=== PATIENT | male | born 1980 | race Caucasian/White ===

== ENCOUNTER → 2019-08-06 | Outpatient (CLI) | payer SELFPAY ==
[2019-08-06 16:29] VITALS: BMI 22.4
[2019-08-06 17:37] LABS: Absolute Lymphocyte Count 2.01 X10^3/uL (0.83-4.51); Absolute Neutrophil Count 4.1 X10^3/uL (2.0-7.7); Basophil# 0.08 X10^3/uL; Basophil% 1.2 % (0-1); Eosinophil# 0.16 X10^3/uL; Eosinophils% 2.3 % (0-5); Hematocrit 41.8 % (40-54); Hemoglobin 13.6 g/dL (13.0-16.5); Lymphocyte # 2.01 X10^3/ul (4.0); Lymphocyte % 29.5 % (19-41); Mean Corp Hgb Conc 32.5 g/dL (32-36); Mean Corpuscular Hgb 29.4 pg (27.0-32.0); Mean Corpuscular Volume 90.5 fL (80-94); Mean Platelet Vol. 11.4 fl (6.2-12.0); Monocyte# 0.47 X10^3/uL; Monocyte% 6.9 % (0-10); NRBC Flagged by Analyzer 0 % (0-5); Neutrophil # 4.08 X10^3/uL (2.7-7.7); Platelet Count 224 K/mm3 (150-450); RBC Distribution Width CV 12.8 % (11.6-14.6); RBC Distribution Width SD 42.4 fl (35.1-43.9); Red Blood Count 4.62 M/mm3 (4.6-6.2); White Blood Count 6.8 K/mm3 (4.4-11.0)
[2019-08-06 19:04] LABS: ALB/GLOB Ratio 1.2 RATIO (0.9-2.4); AST(SGOT) 19 U/L (15-37); Alanine Aminotransfer ALT/SGPT 23 U/L (16-61); Alkaline Phosphatase 64 U/L (45-117); Anion Gap 4 (5-15); BUN 17 mg/dL (7-18); Chloride 107 mmol/L (98-107); Creatinine, Serum 0.85 mg/dL (0.70-1.30); EST Glomerular Filtration Rate 106 mL/min (>60); Est Glom Filt Rate - Afr Amer 128 mL/min (>60); Globulin 3.4 g/dL (2.2-4.2); Glucose 88 mg/dL (74-106); Potassium 3.8 mmol/L (3.5-5.1); Protein, Total 7.4 g/dL (6.4-8.2); Sodium Level 139 mmol/L (136-145); T4 Total, Thyroxin 9.7 ug/dL (4.5-12.1); Thyroid Stim Hormone (TSH) 1.75 uIU/mL (0.358-3.74)
== END | disposition home or self-care (01) ==
LOC: LABSPEC 17:30
PROVIDERS: PCP Internal Medicine; Visit Provider Internal Medicine
DX: F32.9 Major depressive disorder, single episode, unspecified (principal); F41.9 Anxiety disorder, unspecified
CPT/HCPCS: 80053; 84436; 84443; 85025

== ENCOUNTER → 2020-03-25 14:26 | Outpatient (CLI) | payer MEDICAID, SELFPAY ==
[2020-03-25 14:05] VITALS: BMI 23.0
[2020-03-25 15:13] LABS: Absolute Lymphocyte Count 1.53 X10^3/uL (0.83-4.51); Absolute Neutrophil Count 5.6 X10^3/uL (2.0-7.7); Basophil# 0.07 X10^3/uL; Basophil% 0.8 % (0-1); Eosinophil# 0.87 X10^3/uL; Eosinophils% 9.9 % (0-5); Hematocrit 43.2 % (40-54); Hemoglobin 13.6 g/dL (13.0-16.5); Lymphocyte # 1.53 X10^3/ul (4.0); Lymphocyte % 17.4 % (19-41); Mean Corp Hgb Conc 31.5 g/dL (32-36); Mean Corpuscular Hgb 29.7 pg (27.0-32.0); Mean Corpuscular Volume 94.3 fL (80-94); Mean Platelet Vol. 11.2 fl (6.2-12.0); Monocyte# 0.67 X10^3/uL; Monocyte% 7.6 % (0-10); NRBC Flagged by Analyzer 0 % (0-5); Neutrophil # 5.62 X10^3/uL (2.7-7.7); Neutrophil % 64.1 % (47-70); Platelet Count 237 K/mm3 (150-450); RBC Distribution Width CV 13.4 % (11.6-14.6); RBC Distribution Width SD 46.2 fl (35.1-43.9); Red Blood Count 4.58 M/mm3 (4.6-6.2); White Blood Count 8.8 K/mm3 (4.4-11.0)
== END ==
PROVIDERS: PCP Internal Medicine; Referring Provider Internal Medicine; Visit Provider Internal Medicine
DX: F31.9 Bipolar disorder, unspecified (principal)
CPT/HCPCS: 36415; 85025

== ENCOUNTER → 2020-05-04 08:17 | Outpatient (CLI) | payer MEDICAID, SELFPAY ==
[2020-05-03 16:59] VITALS: BMI 23.7
[2020-05-04 08:20] LABS: Bacteria 0 SEEN /hpf (None Seen); Mucous, Urine 0 SEEN /hpf (<or=2+); Red Blood Cells-Urine 0 SEEN /hpf (0-5); Squamous Epithelial Cells - UA 0 SEEN /hpf (0-5); White Blood Cells 0 SEEN /hpf (0-5)
[2020-05-04 12:38] LABS: Color, Urine Yellow (Yellow); Glucose, Dipstick Normal (Normal); Ketone-Dipstick Negative (Negative); Leukocyte Esterase-Dipstick Negative /ul (Negative); Nitrite-Dipstick Negative (Negative); Occult Blood-Urine Negative /ul (Negative); Protein-Dipstick Negative (Negative); Urine Bilirubin Dipstick Negative (Negative); Urine Clarity Clear (Clear); Urine Urobilinogen Normal (Normal); Urine pH 6.5 (5.0 - 8.0)
[2020-05-04 13:01] LABS: Thyroid Stim Hormone (TSH) 4.46 uIU/mL (0.358-3.74)
[2020-05-05 08:51] LABS: T4 Free Direct 1.08 ng/dL (0.76-1.46)
[2020-05-07 14:08] LABS: Testosterone, Free 10.08 ng/dL (5.00-21.00)
[2020-05-08 07:22] LABS: Testosterone, Total 312 ng/dL (264-916)
[2020-05-08 07:23] LABS: Testosterone, % Free 3.23 % (1.50-4.20)
== END ==
PROVIDERS: Nurse Practitioner Family; PCP Internal Medicine; Visit Provider Internal Medicine
DX: N52.9 Male erectile dysfunction, unspecified (principal); R79.89 Other specified abnormal findings of blood chemistry
CPT/HCPCS: 36415; 81001; 84402; 84403; 84439; 84443

== ENCOUNTER 2020-09-26 11:56 | Emergency (ER) | payer MEDICAID, SELFPAY ==
[2020-09-16 14:54] VITALS: BMI 23.7
[2020-09-26 11:57] VITALS: BP 117/61; PULSE 96; RESP 14; TEMP 36.5; O2SAT 99; BMI 23.7
--- NOTE | 2020-09-26 12:52 | EKG12_ITS ---
Test Reason : SYNCOPE Blood Pressure : / mmHG Vent. Rate : 075 BPM Atrial Rate : 075 BPM P-R Int : 142 ms QRS Dur : 090 ms QT Int : 398 ms P-R-T Axes : 063 064 052 degrees QTc Int : 444 ms Normal sinus rhythm Normal ECG Confirmed by NILA PALMA, PETRA ([id number]), loan expeditor YOHANNES HILL ([id number]) on 09/30/2020 8:14:01 AM Referred By: SILVANO Confirmed By:PETRA DOTSON MD
[2020-09-26 13:05] VITALS: PULSE 69; RESP 10; O2SAT 98
--- NOTE | 2020-09-26 13:09 | EX.ED.DYSGE1 ---
HPI History of Present Illness Chief Complaint: Syncope Informant: patient Narrative Narrative: Patient is a 40-year-old male with a past medical history of bipolar, drug abuse who presents to the emergency department for feeling a rattle in his chest. Has been present for the past week. He denies ever having this happen before in the past. No significant chest pain or shortness of breath. Denies a cough. No had subjective fevers but no chills. He has not got his Covid vaccine. He denies any leg swelling or calf pain. Patient is somnolent throughout exam. He does fall asleep multiple times. He denies using any drugs or alcohol today. States he does not sleep very well and had to work this morning. He denies any abdominal pain or nausea/vomiting. No change in moving bowels. No urinary symptoms. Patient gave a very different story he states that he passed out after getting caught in somebody else's belongings. He also told him he had a swollen lymph node. Patient did not bring any of this up to myself. [facility] Medical History (Updated 09/26/20 @ 15:[address] Chava Rangel DO) Acute insomnia Anxiety and depression Chronic bronchitis Drug abuse H/O emotional problems History of back problems Nephrotic syndrome Home Medications levothyroxine 25 mcg tablet 25 mcg PO DAILY #90 tab 05/10/20 [Rx Last Taken Unknown] aripiprazole 10 mg tablet 10 mg PO DAILY #90 tab 05/16/20 [Rx Last Taken Unknown] citalopram 10 mg tablet 10 mg PO DAILY #90 tab 05/16/20 [Rx Last Taken Unknown] trazodone 50 mg tablet 50 mg PO QHS PRN #60 tab 05/16/20 [Rx Last Taken Unknown] sildenafil (pulm.hypertension) 20 mg tablet 20 mg PO DAILY PRN #30 tab 09/01/20 [Rx Last Taken Unknown] Allergy/AdvReac Type Severity Reaction Status Date / Time No Known Allergies Allergy Verified 09/26/20 12:00 Family History Grandfather Cancer Father Suicide Surgical History No history of previous surgery Social History Smoking Status: Current every day smoker tobacco type: cigarettes alcohol intake: never substance use type: does not use frequency: 3-4 times per week ROS ROS ED Constitutional Constitutional ED: Denies chills or fever(s) Eyes Eyes: Denies change in vision ENT ENT ED: Denies epistaxis or rhinorrhea Cardiovascular Cardiovascular: Denies chest pain or palpitations Respiratory/Chest Respiratory/Chest: Denies cough, dyspnea or dyspnea on exertion Gastrointestinal Gastrointestinal: Denies abdominal pain, diarrhea, nausea or vomiting Genitourinary Genitourinary ED: Denies dysuria, hematuria or urinary frequency Musculoskeletal Musculoskeletal: Denies back pain or neck pain Integumentary Denies rash Neurologic Neurologic: Denies dizziness, headache(s) or weakness EXAM Physical Exam Const Vital Signs: 09/26/20 11:57 09/26/20 13:05 09/26/20 14:09 Temperature 97.7 F L Temperature Source Temporal Pulse Rate 96 69 67 Pulse Rate [Lying] Pulse Rate [Sitting] Pulse Rate [Standing] Respiratory Rate 14 10 L 10 L Blood Pressure 117/61 110/77 Blood Pressure [Lying] Blood Pressure [Sitting] Blood Pressure [Standing] Blood Pressure Mean 79 88 Blood Pressure Mean [Lying] Blood Pressure Mean [Sitting] Blood Pressure Mean [Standing] Pulse Ox 99 98 98 Oxygen Delivery Method Room Air Room Air Room Air 09/26/20 14:48 Temperature Temperature Source Pulse Rate Pulse Rate [Lying] 64 Pulse Rate [Sitting] 65 Pulse Rate [Standing] 72 Respiratory Rate Blood Pressure Blood Pressure [Lying] 109/81 H Blood Pressure [Sitting] 101/74 Blood Pressure [Standing] 110/67 Blood Pressure Mean Blood Pressure Mean [Lying] 90 Blood Pressure Mean [Sitting] 83 Blood Pressure Mean [Standing] 81 Pulse Ox Oxygen Delivery Method Positive well nourished and well developed Constitutional Narrative: Patient falls asleep multiple times throughout exam. Does awake easily and answer questions appropriately. General Appearance ED: well developed and NAD HEENT Reports normocephalic, head/scalp atraumatic and moist mucous membranes Eyes PERRL and EOMs intact bilaterally Neck supple Chest Wall inspection of chest normal Resp normal respiratory effort and clear to auscultation bilaterally Auscultation: Negative for wheezes Cardio regular rate, regular rhythm and no murmurs GI normal to inspection, nondistended, normoactive bowel sounds and non-tender Palpation: soft; Negative for guarding or rebound tenderness present Back/Spine no CVA tenderness Extremity normal to inspection General Extremety ED: Negative for edema or tenderness General Extremity: Negative for edema Neuro oriented x3, CN's II-XII intact bilaterally and no sensory deficits noted Motor Exam: strength 5/5 throughout Psych mental status grossly normal Skin Skin Narrative: Multiple superficial lesions along the hands bilaterally. MDM MDM MDM Narrative Medical decision making narrative: Patient presents to the emergency department stating he feels a rattle in his chest. Upon arrival to the emerge department he is satting well on room air. He is in no acute distress. He is somnolent it takes multiple times awakening him to answer HPI questions. Will check basic lab work including chest x-ray. Patient's work-up showed multiple substance use including amphetamines, cannabinoids as well as opioids. I believe that this is playing a large part in patient's symptoms. Aggressive work-up did not reveal any significant acute abnormality. Has become more alert throughout ED stay. Will discharge home in stable condition. Low concern for ACS, PE, aortic catastrophe causing symptoms. He is to follow-up with his PCP. Return precautions are reviewed. He understands and is agreeable this plan. Discharged home in stable condition. Lab Data Labs: Laboratory Results - last 24 hr 09/26/20 09/26/20 09/26/20 13:00 13:00 13:03 WBC 8.5 RBC 4.24 L Hgb 12.3 L Hct 38.5 L MCV 90.8 MCH 29.0 MCHC 31.9 L RDW Std Deviation 43.5 RDW Coeff of Maria Antonia 13.1 Plt Count 227 MPV 11.2 Immature Gran % (Auto) 0.100 Neut % (Auto) 59.9 Lymph % (Auto) 22.4 [place] % (Auto) 6.6 Eos % (Auto) 9.9 H Baso % (Auto) 1.1 H Absolute Neuts (auto) 5.1 Absolute Lymphs (auto) 1.90 Nucleated RBC % 0 Sodium 139 Potassium 3.6 Chloride 105 Carbon Dioxide 26.0 Anion Gap 8 BUN 9 Creatinine 0.70 Estim Creat Clear Calc 147.91 Est GFR (MDRD) Af Amer 160 Est GFR (MDRD) Non-Af 133 BUN/Creatinine Ratio 12.9 Glucose 87 Calcium 8.8 Magnesium 2.2 Troponin I < 0.015 Urine Opiates Screen Urine Methadone Screen Ur Barbiturates Screen Ur Phencyclidine Scrn Ur Amphetamines Screen U Methamphetamin-MDMA U Benzodiazepines Scrn Urine Cocaine Screen U Cannabinoids Screen Ur Drug Screen Comment Ethyl Alcohol 4.0 09/26/20 14:20 WBC RBC Hgb Hct MCV MCH MCHC RDW Std Deviation RDW Coeff of Maria Antonia Plt Count MPV Immature Gran % (Auto) Neut % (Auto) Lymph % (Auto) [place] % (Auto) Eos % (Auto) Baso % (Auto) Absolute Neuts (auto) Absolute Lymphs (auto) Nucleated RBC % Sodium Potassium Chloride Carbon Dioxide Anion Gap BUN Creatinine Estim Creat Clear Calc Est GFR (MDRD) Af Amer Est GFR (MDRD) Non-Af BUN/Creatinine Ratio Glucose Calcium Magnesium Troponin I Urine Opiates Screen POSITIVE H Urine Methadone Screen NEGATIVE Ur Barbiturates Screen NEGATIVE Ur Phencyclidine Scrn NEGATIVE Ur Amphetamines Screen POSITIVE H U Methamphetamin-MDMA POSITIVE H U Benzodiazepines Scrn NEGATIVE Urine Cocaine Screen NEGATIVE U Cannabinoids Screen POSITIVE H Ur Drug Screen Comment Ethyl Alcohol Radiography Chest X-Ray - ED: 1 View (Single view portable x-ray interpreted by myself. Clear lung ramesh bilaterally. No pleural effusion. Normal cardiac silhouette. Normal mediastinum.) Diagnostic Testing: Radiology Impression Chest X-Ray 09/26/20 13:12 IMPRESSION: Normal x-ray examination of the chest. Electronically Signed: Adalid Nunn MD at 13:37 EDT , Service support , EKG Initial EKG: Attestation: I personally reviewed and interpreted this EKG as follows: (Rate of 75 bpm normal sinus rhythm. Normal intervals. Normal axis. No significant ST elevations or depressions. No T wave abnormalities.) Discharge Plan Triage Chief Complaint: Syncope ED Provider: Chava Rangel Dx/Rx/DC Orders Clinical Impression: Substance use disorder, Episode of syncope Instructions: Signs of Addiction: When Use Becomes Abuse, ED ALOC Prescriptions: No Action levothyroxine 25 mcg tablet 25 mcg PO DAILY Qty: 90 RF: 1 aripiprazole [Abilify] 10 mg tablet 10 mg PO DAILY Qty: 90 RF: 3 citalopram 10 mg tablet 10 mg PO DAILY Qty: 90 RF: 3 trazodone 50 mg tablet 50 mg PO QHS PRN (Reason: insomnia) Qty: 60 RF: 2 sildenafil (pulm.hypertension) 20 mg tablet 20 mg PO DAILY PRN (Reason: sexual activity) Qty: 30 RF: 1 Primary Care Provider: Eleanor Arroyo Referrals: Eleanor Arroyo MD [Primary Care Provider] - 2 Days Disposition Disposition: Home, self care
[2020-09-26 13:11] LABS: Absolute Neutrophil Count 5.1 X10^3/uL (2.0-7.7); Basophil# 0.09 X10^3/uL; Basophil% 1.1 % (0-1); Eosinophil# 0.84 X10^3/uL; Eosinophils% 9.9 % (0-5); Hematocrit 38.5 % (40-54); Hemoglobin 12.3 g/dL (13.0-16.5); Lymphocyte % 22.4 % (19-41); Mean Corp Hgb Conc 31.9 g/dL (32-36); Mean Corpuscular Volume 90.8 fL (80-94); Mean Platelet Vol. 11.2 fl (6.2-12.0); Monocyte# 0.56 X10^3/uL; Monocyte% 6.6 % (0-10); NRBC Flagged by Analyzer 0 % (0-5); Neutrophil # 5.08 X10^3/uL (2.7-7.7); Neutrophil % 59.9 % (47-70); Platelet Count 227 K/mm3 (150-450); RBC Distribution Width CV 13.1 % (11.6-14.6); RBC Distribution Width SD 43.5 fl (35.1-43.9); Red Blood Count 4.24 M/mm3 (4.6-6.2); White Blood Count 8.5 K/mm3 (4.4-11.0)
--- NOTE | 2020-09-26 13:12 | RAD_ITS ---
STUDY: X-RAY CHEST REASON FOR EXAM: Male, 40 years old. Feels rattle in chest TECHNIQUE: Single AP portable view of the chest. COMPARISON: None. FINDINGS: EKG electrodes are seen. The lungs are clear and expanded. There is no demonstrated pleural abnormality. Normal size heart. Normal mediastinum and mary. Normal visualized pulmonary arteries. Normal visualized aortic arch and descending thoracic aorta. Normal visualized thoracic spine. Normal visualized ribs, clavicles, and shoulders. There is no demonstrated abnormality of the visualized soft tissue structures of the upper abdomen. RAD/Chest 1 View (Portable) IMPRESSION: Normal x-ray examination of the chest. Electronically Signed: Adalid Nunn MD at 13:37 EDT , Service support ,
--- NOTE | 2020-09-26 13:17 | NURSING ---
NO OLD EKGS
[2020-09-26 13:28] LABS: Anion Gap 8 (5-15); BUN 9 mg/dL (7-18); BUN/Creat Ratio 12.9 RATIO (10-20); Calcium,Total 8.8 mg/dL (8.5-10.1); Chloride 105 mmol/L (98-107); EST Glomerular Filtration Rate 133 mL/min (>60); Est Glom Filt Rate - Afr Amer 160 mL/min (>60); Estimated Creatinine Clearance 147.91 ml/min; Glucose 87 mg/dL (74-106); Magnesium 2.2 mg/dL (1.6-2.6); Potassium 3.6 mmol/L (3.5-5.1); Sodium Level 139 mmol/L (136-145)
[2020-09-26 14:09] VITALS: BP 110/77; PULSE 67; RESP 10; O2SAT 98
[2020-09-26 14:40] LABS: Amphetamine Urine VISTA POSITIVE (<1000 ng/mL); Barbiturate Urine VISTA NEGATIVE (< 200 ng/mL); Benzodiazepine Urine VISTA NEGATIVE (< 200 ng/mL); Cocaine Urine VISTA NEGATIVE (< 300 ng/mL); Ecstacy Urine VISTA POSITIVE (< 500 ng/mL); Methadone Urine VISTA NEGATIVE (< 300 ng/mL); PCP Urine VISTA NEGATIVE (< 25 ng/mL); THC Urine VISTA POSITIVE (< 50 ng/mL); Vista UDS pH Range 6
[2020-09-26 14:48] VITALS: BP 101/74; BP 109/81; BP 110/67; PULSE 64; PULSE 65; PULSE 72
== END 2020-09-26 15:32 | disposition home or self-care (01) ==
PROVIDERS: Emergency Provider Emergency Medicine; PCP Internal Medicine
DX: R55 Syncope and collapse (principal); J42 Unspecified chronic bronchitis; N04.9 Nephrotic syndrome with unspecified morphologic changes; F31.9 Bipolar disorder, unspecified; F41.9 Anxiety disorder, unspecified; F17.210 Nicotine dependence, cigarettes, uncomplicated; Z79.899 Other long term (current) drug therapy
CPT/HCPCS: 71045; 80048; 80307; 82077; 83735; 84484; 85025; 93005; 99284; A4216

== ENCOUNTER 2020-11-05 13:44 | Observation (INO) | payer MEDICAID, SELFPAY ==
[2020-11-05 13:45] VITALS: BP 116/73; PULSE 95; RESP 16; TEMP 35.6; O2SAT 100; BMI 23.7
--- NOTE | 2020-11-05 14:03 | EDS_ITS ---
HPI History of Present Illness Chief Complaint: Substance Abuse Informant: patient Narrative Narrative: Patient presenting requesting detox from heroin, fentanyl, crystal meth. States she started using 25 years ago, he was [facility], released 2 years ago, he states he relapsed for the past year. Has not received help for the past year. He states recently daily use with last use at 5 AM this morning. Reports he snorts fentanyl and heroin, he smokes crystal meth. He denies IV use. Denies alcohol. Denies homicidal suicidal ideations. He states his significant other was admitted yesterday to this facility for help. History of PTSD, insomnia, bipolar. He states he tried to detox on his own is unable to. Currently denies any nausea or vomiting. No other complaints. [facility] Medical History (Updated 11/05/20 @ 15:[address] Robi Pyle DO) Acute insomnia Anxiety and depression Chronic bronchitis Drug abuse H/O emotional problems History of back problems Nephrotic syndrome Home Medications levothyroxine 25 mcg tablet 25 mcg PO DAILY #90 tab 05/10/20 [Rx Last Taken Unknown] aripiprazole 10 mg tablet 10 mg PO DAILY #90 tab 05/16/20 [Rx Last Taken Unknown] citalopram 10 mg tablet 10 mg PO DAILY #90 tab 05/16/20 [Rx Last Taken Unknown] trazodone 50 mg tablet 50 mg PO QHS PRN #60 tab 05/16/20 [Rx Last Taken Unknown] sildenafil (pulm.hypertension) 20 mg tablet 20 mg PO DAILY PRN #30 tab 10/26/20 [Rx Last Taken Unknown] Allergy/AdvReac Type Severity Reaction Status Date / Time No Known Allergies Allergy Verified 11/05/20 13:47 Family History Grandfather Cancer Father Suicide Surgical History No history of previous surgery Social History Smoking Status: Current every day smoker tobacco type: cigarettes alcohol intake: never substance use type: does not use frequency: 3-4 times per week ROS ROS ED Constitutional Constitutional ED: Denies chills, fever(s) or sweats Eyes Eyes: Denies change in vision ENT ENT ED: Denies dysphagia or sore throat Cardiovascular Cardiovascular: Denies chest pain, leg edema, palpitations or racing heartbeat Respiratory/Chest Respiratory/Chest: Denies cough, dyspnea or dyspnea on exertion Gastrointestinal Gastrointestinal: Denies abdominal pain, diarrhea, nausea or vomiting Genitourinary Genitourinary ED: Denies dysuria, hematuria or urinary frequency Musculoskeletal Musculoskeletal: Denies back pain, extremity pain or neck pain Integumentary Denies rash or wounds Neurologic Neurologic: Denies headache(s), paresthesias or weakness EXAM Physical Exam Const Vital Signs: 11/05/20 13:45 11/05/20 15:09 Temperature 96.0 F L Temperature Source Temporal Pulse Rate 95 70 Respiratory Rate 16 16 Blood Pressure 116/73 120/74 Blood Pressure Mean 87 89 Pulse Ox 100 99 Oxygen Delivery Method Room Air Room Air Positive well nourished and well developed General Appearance ED: well developed and NAD HEENT Reports moist mucous membranes normocephalic and atraumatic Eyes PERRL, EOMs intact bilaterally and conjunctivae normal General Eye ED: Yes normal appearance of both eyes Neck no lymphadenopathy and supple General: Negative for tenderness Chest Wall Chest: Negative for tenderness Resp normal respiratory effort and normal air movement Effort and Inspection: symmetric chest movement; Negative for respiratory distress Cardio regular rate, regular rhythm and no murmurs Peripheral Pulses: pulses 2+ throughout GI normal to inspection, nondistended, normoactive bowel sounds and non-tender Palpation: Negative for guarding or rebound tenderness present Back/Spine no CVA tenderness and no thoracic nor lumbar tenderness Extremity normal to inspection General Extremety ED: Negative for edema or tenderness General Extremity: Negative for edema Neuro oriented x3 and no sensory deficits noted Sensorium / Orientation: awake and alert Skin no rashes or lesions noted and no wounds Skin Narrative: Abrasions with bumps bilateral distal forearms. No surrounding erythema or drainage. MDM MDM MDM Narrative Medical decision making narrative: Patient nontoxic vital signs stable. No withdrawal symptoms currently. Last use at 5 AM. Reports bumps on his forearms are from scratching, denies IV drug use. Labs will be drawn for evaluation we will plan to admit for detox with opiate dependence. 1524: Awaiting tox screen from urine. Patient discussed with hospitalist Dr. Rodriguez for admission to assist with detox. Lab Data Attestation: I reviewed the patient's lab results. Labs: Laboratory Results - last 24 hr 11/05/20 11/05/20 11/05/20 14:00 14:00 14:00 WBC 8.3 RBC 4.48 L Hgb 12.9 L Hct 41.7 MCV 93.1 MCH 28.8 MCHC 30.9 L RDW Std Deviation 44.6 H RDW Coeff of Maria Antonia 13.0 Plt Count 288 MPV 10.6 Immature Gran % (Auto) 0.400 Neut % (Auto) 54.1 Lymph % (Auto) 30.9 [place] % (Auto) 7.5 Eos % (Auto) 6.3 H Baso % (Auto) 0.8 Absolute Neuts (auto) 4.5 Absolute Lymphs (auto) 2.56 Nucleated RBC % 0 Sodium 140 Potassium 3.5 Chloride 105 Carbon Dioxide 29.0 Anion Gap 6 BUN 10 Creatinine 0.78 Estim Creat Clear Calc 136.79 Est GFR (MDRD) Af Amer 140 Est GFR (MDRD) Non-Af 116 BUN/Creatinine Ratio 12.8 Glucose 68 L Calcium 8.5 Ur Drug Screen Comment Ethyl Alcohol < 3.0 11/05/20 15:05 WBC RBC Hgb Hct MCV MCH MCHC RDW Std Deviation RDW Coeff of Maria Antonia Plt Count MPV Immature Gran % (Auto) Neut % (Auto) Lymph % (Auto) [place] % (Auto) Eos % (Auto) Baso % (Auto) Absolute Neuts (auto) Absolute Lymphs (auto) Nucleated RBC % Sodium Potassium Chloride Carbon Dioxide Anion Gap BUN Creatinine Estim Creat Clear Calc Est GFR (MDRD) Af Amer Est GFR (MDRD) Non-Af BUN/Creatinine Ratio Glucose Calcium Ur Drug Screen Comment Ethyl Alcohol Discharge Plan Triage Chief Complaint: Substance Abuse ED Provider: Robi Pyle Dx/Rx/DC Orders Clinical Impression: Substance use disorder, Opioid dependence Prescriptions: No Action levothyroxine 25 mcg tablet 25 mcg PO DAILY Qty: 90 RF: 1 aripiprazole [Abilify] 10 mg tablet 10 mg PO DAILY Qty: 90 RF: 3 citalopram 10 mg tablet 10 mg PO DAILY Qty: 90 RF: 3 trazodone 50 mg tablet 50 mg PO QHS PRN (Reason: insomnia) Qty: 60 RF: 2 sildenafil (pulm.hypertension) 20 mg tablet 20 mg PO DAILY PRN (Reason: sexual activity) Qty: 30 RF: 1 Primary Care Provider: Eleanor Arroyo Referrals: Eleanor Arroyo MD [Primary Care Provider] - Disposition Disposition: Acute Care [facility]
[2020-11-05 14:10] LABS: Absolute Lymphocyte Count 2.56 X10^3/uL (0.83-4.51); Absolute Neutrophil Count 4.5 X10^3/uL (2.0-7.7); Basophil# 0.07 X10^3/uL; Basophil% 0.8 % (0-1); Eosinophil# 0.52 X10^3/uL; Eosinophils% 6.3 % (0-5); Hematocrit 41.7 % (40-54); Hemoglobin 12.9 g/dL (13.0-16.5); Lymphocyte # 2.56 X10^3/ul (0.83-4.51); Lymphocyte % 30.9 % (19-41); Mean Corp Hgb Conc 30.9 g/dL (32-36); Mean Corpuscular Hgb 28.8 pg (27.0-32.0); Mean Corpuscular Volume 93.1 fL (80-94); Mean Platelet Vol. 10.6 fl (6.2-12.0); Monocyte# 0.62 X10^3/uL; Monocyte% 7.5 % (0-10); NRBC Flagged by Analyzer 0 % (0-5); Neutrophil # 4.49 X10^3/uL (2.7-7.7); Neutrophil % 54.1 % (47-70); Platelet Count 288 K/mm3 (150-450); RBC Distribution Width SD 44.6 fl (35.1-43.9); Red Blood Count 4.48 M/mm3 (4.6-6.2); White Blood Count 8.3 K/mm3 (4.4-11.0)
[2020-11-05 14:22] LABS: Anion Gap 6 (5-15); BUN 10 mg/dL (7-18); BUN/Creat Ratio 12.8 RATIO (10-20); Calcium,Total 8.5 mg/dL (8.5-10.1); Chloride 105 mmol/L (98-107); Creatinine, Serum 0.78 mg/dL (0.70-1.30); EST Glomerular Filtration Rate 116 mL/min (>60); Est Glom Filt Rate - Afr Amer 140 mL/min (>60); Estimated Creatinine Clearance 136.79 ml/min; Glucose 68 mg/dL (74-106); Potassium 3.5 mmol/L (3.5-5.1); Sodium Level 140 mmol/L (136-145)
[2020-11-05 14:35] LABS: Alcohol, Blood (Medical)-Serum < 3.0 mg/dL
[2020-11-05 15:09] VITALS: BP 120/74; PULSE 70; RESP 16; O2SAT 99
[2020-11-05 15:23] VITALS: BP 120/74; PULSE 70; RESP 16; TEMP 36.4; O2SAT 99
--- NOTE | 2020-11-05 15:23 | PCM.HP.STD ---
HPI - General General Date of Admission: 11/05/20 Date of Service: 11/05/20 Chief Complaint: Acute Opiate Abuse, Withdrawal HPI Narrative The patient is a 40 y/o M w/ PMHx: Bipolar disorder/Anxiety and Depression, Tobacco use, Hypothyroidism, Polysubstance abuse (Heroin snorted, Fentanyl snorted, Methamphetamines smoked, last usage 5 am on day of ED presentation) who presents to the [facility] ED on 11/05/20 with history of being released from detention 2 years prior and unfortunately relapsing over the last year with daily heroin as well as fentanyl snorting and methamphetamine smoking, last usage 5 AM on day of presentation with significant other admitting herself the day prior to [facility] for withdrawal treatment prompting patient to attempt to achieve clean status with onset of very mild abdominal cramping, minimal body aches, fatigue and mild restlessness but notes that his symptoms seem to worsen later than most individuals he knows. Work-up in the ED included T 96 temporally, heart rate 95, BP 116/73, respiratory rate 16, 100% room air, CBC with WC 8.3, hemoglobin 12.9, platelet 288 without marked shift, BMP with glucose 68, urine drug screen pending, ethyl alcohol less than 3. [facility] Medical History (Updated 11/05/20 @ 15:[address] Kendra Rodriguez MD) Acute insomnia Anxiety and depression Chronic bronchitis Drug abuse H/O emotional problems History of back problems Nephrotic syndrome Home Medications levothyroxine 25 mcg tablet 25 mcg PO DAILY #90 tab 05/10/20 [Rx Last Taken Unknown] aripiprazole 10 mg tablet 10 mg PO DAILY #90 tab 05/16/20 [Rx Last Taken Unknown] citalopram 10 mg tablet 10 mg PO DAILY #90 tab 05/16/20 [Rx Last Taken Unknown] trazodone 50 mg tablet 50 mg PO QHS PRN #60 tab 05/16/20 [Rx Last Taken Unknown] sildenafil (pulm.hypertension) 20 mg tablet 20 mg PO DAILY PRN #30 tab 10/26/20 [Rx Last Taken Unknown] Allergy/AdvReac Type Severity Reaction Status Date / Time No Known Allergies Allergy Verified 11/05/20 13:47 Family History (Updated 11/05/20 @ 15:[address] Kendra Rodriguez MD) Grandfather Cancer Father Suicide Anxiety and depression Mother Alcohol abuse Surgical History No history of previous surgery no surgical history Social History (Updated 11/05/20 @ 15:[address] Kendra Rodriguez MD) household members: family Smoking Status: Current every day smoker tobacco type: cigarettes Smoking packs per day: 1 Smoking cigarettes per day: 20.0 Years smoked: 6 Smoking pack-years: 6.00 alcohol intake: never substance use type: marijuana, heroin, methamphetamine and other details: Fentanyl, Heroin (snorted), Methamphetamine (smoked) frequency: 3-4 times per week ROS ROS Narrative Admission Review of Systems: CONSTITUTIONAL: No weight loss, fever, chills, + weakness or fatigue. HEENT: Eyes: No visual loss, blurred vision, double vision or yellow sclerae. Ears, Nose, Throat: No hearing loss, sneezing, congestion, runny nose or sore throat. SKIN: No rash or itching, lesions, wounds. CARDIOVASCULAR: No chest pain, chest pressure or chest discomfort, palpitations, edema, orthopnea, syncopal events. RESPIRATORY: No shortness of breath, cough or sputum, wheezing, hemoptysis. GASTROINTESTINAL: No anorexia, nausea, vomiting or diarrhea, abdominal pain, melena, BRBPR. GENITOURINARY: No dysuria, frequency, urgency or retention. NEUROLOGICAL: + Restlessness. No headache, dizziness, syncope, paralysis, ataxia, numbness or tingling in the extremities, focal weakness, change in bowel or bladder control, seizure. MUSCULOSKELETAL: + muscle, back pain, joint pain or stiffness. HEMATOLOGIC: No anemia, bleeding or bruising. LYMPHATICS: No enlarged nodes. No history of splenectomy. PSYCHIATRIC: + history of depression or anxiety. ENDOCRINOLOGIC: No reports of sweating, cold or heat intolerance. No polyuria or polydipsia. ALLERGIES: No history of asthma, hives, eczema or rhinitis. Vital Signs Vital Signs Vital Signs: 11/05/20 13:45 11/05/20 15:09 Temperature 96.0 F L Temperature Source Temporal Pulse Rate 95 70 Respiratory Rate 16 16 Blood Pressure 116/73 120/74 Blood Pressure Mean 87 89 Pulse Ox 100 99 Oxygen Delivery Method Room Air Room Air Weight Weight: 175 lb Body Mass Index (BMI) 23.7 Physical Exam Narrative Physical Examination: General: Awake, alert, oriented x 3 and cooperative, seated upright in the ED bed, mildly restless, fatigued appearing. Skin: Normal color, normal turgor, no icterus, no cyanosis. HEENT: AT/NC, EOMI, PERRLA, mildly dry MM, no carotid bruits or JVD noted. Lungs: CTA bilaterally, moderate effort, mild decrease BL bases, no rales, ronchi or wheezing. Heart: Regular rate and rhythm; no gallop, rub audible. Abdomen: Soft, mild generalized discomfort without rebound or guarding, ND, mildly hyperactive BS, no HSM. Extremities: No cyanosis, clubbing, or edema. Neurological: Patient awake, alert, oriented as noted, cognitive function intact; pupils equally reactive to light and accommodation, cranial nerves II-XII grossly normal, moving all 4 extremities, no focal deficits, strength preserved, mildly restless. Psychiatric: Affect appears mildly anxious, no acute evidence of depressive feelings. Results Lab / Micro Data Result Diagrams: 11/05/20 14:00 11/05/20 14:00 Labs: Laboratory Results - last 24 hr 11/05/20 14:00: WBC 8.3, RBC 4.48 L, Hgb 12.9 L, Hct 41.7, MCV 93.1, MCH 28.8, MCHC 30.9 L, RDW Std Deviation 44.6 H, RDW Coeff of Maria Antonia 13.0, Plt Count 288, MPV 10.6, Immature Gran % (Auto) 0.400, Neut % (Auto) 54.1, Lymph % (Auto) 30.9, Metcalfe % (Auto) 7.5, Eos % (Auto) 6.3 H, Baso % (Auto) 0.8, Absolute Neuts (auto) 4.5, Absolute Lymphs (auto) 2.56, Nucleated RBC % 0 11/05/20 14:00: Sodium 140, Potassium 3.5, Chloride 105, Carbon Dioxide 29.0, Anion Gap 6, BUN 10, Creatinine 0.78, Estim Creat Clear Calc 136.79, Est GFR (MDRD) Af Amer 140, Est GFR (MDRD) Non-Af 116, BUN/Creatinine Ratio 12.8, Glucose 68 L, Calcium 8.5 11/05/20 14:00: Ethyl Alcohol < 3.0 11/05/20 15:05: Ur Drug Screen Comment Assessment & Plan Assessment/Plan (1) Opiate withdrawal: PLAN: The patient is a 40 y/o M w/ PMHx: Bipolar disorder/Anxiety and Depression, Tobacco use, Hypothyroidism, Polysubstance abuse who presents to the [facility] ED on 11/05/20 with history of being released from detention 2 years prior and unfortunately relapsing over the last year with daily heroin as well as fentanyl snorting and methamphetamine smoking, last usage 5 AM, presenting with onset acute withdrawal. 1. Acute Opiate Withdrawal: Will admit to [facility], routine labs including CBC, BMP, urine for drug screen obtained in the ED, will add hepatic profile, will initiate and continue on protocol with tapering course of Subutex, as needed tylenol, ibuprofen, bowel regimen, gabapentin, Bentyl, Vistaril, methocarbamol, clonidine, PRN nightly trazodone for insomnia, IV fluids, IV antiemetics. Once patient clinically improved and completion of taper nearing will plan consultation with case management for transition to next level of rehabilitation care. 2. Polysubstance Abuse, Chronic: Denies IVDA currently or previously; however, to be cautious will obtain HIV and hepatitis panel. He does report that many individuals were hepatitis C positive in detention. If positive for hepatitis C, patient would not currently be a candidate for hep C treatment currently as needs to be clean, sober x 6 months, documented attendance NA or AA meetings, counseling and ongoing negative drug screens. 3. Tobacco Abuse: Encouraged cessation, inpatient consultation per RT, NR if desired. 4. Anxiety and depression/bipolar disorder/PTSD: We will continue patient home Abilify and citalopram regimen as well as trazodone regimen, elevate to protocol. 5. Hypothyroidism: Continue home synthroid regimen. 6. DVT prophylaxis: Low risk, encourage ambulation. Charges/Coding Visit Charges Inpatient E&M: 33993 Init Hosp L3
--- NOTE | 2020-11-05 15:39 | NURSING ---
313 WHITE OPIOD DEPENDENCE
[2020-11-05 15:49] LABS: Amphetamine Urine VISTA POSITIVE (<1000 ng/mL); Barbiturate Urine VISTA NEGATIVE (< 200 ng/mL); Benzodiazepine Urine VISTA NEGATIVE (< 200 ng/mL); Cocaine Urine VISTA NEGATIVE (< 300 ng/mL); Ecstacy Urine VISTA POSITIVE (< 500 ng/mL); Methadone Urine VISTA NEGATIVE (< 300 ng/mL); PCP Urine VISTA NEGATIVE (< 25 ng/mL); THC Urine VISTA POSITIVE (< 50 ng/mL); Vista UDS pH Range 5
[2020-11-05 16:10] VITALS: BMI 22.6
[2020-11-05 16:25] VITALS: BP 100/59; PULSE 81; RESP 15; TEMP 36.6; O2SAT 98
[2020-11-05 16:31] LABS: HIV - WCH Non-Reactive (Nonreactive)
[2020-11-05 16:35] LABS: AST(SGOT) 13 U/L (15-37); Alanine Aminotransfer ALT/SGPT 18 U/L (16-61); Albumin, Serum 3.4 g/dL (3.2-5.0); Alkaline Phosphatase 100 U/L (45-117); Bilirubin, Direct 0.08 mg/dL (0.00-0.30); Globulin 3.6 g/dL (2.2-4.2)
[2020-11-05] MEDS: Lactated Ringers 1,000 ML 125 ML IV (17:05)
[2020-11-05 20:10] VITALS: BP 116/62; PULSE 70; RESP 18; TEMP 36.8; O2SAT 98
[2020-11-06 02:10] VITALS: BP 114/78; PULSE 67; RESP 18; TEMP 36.5; O2SAT 98
[2020-11-06] MEDS: hydrOXYzine PAM 25 MG Capsule 50 MG PO ×2 (02:56→20:42)
[2020-11-06] MEDS: Methocarbamol 750 MG Tablet 1500 MG PO ×2 (03:18→15:04)
[2020-11-06] MEDS: Dicyclomine 10 MG Capsule 20 MG PO ×2 (03:19→20:42)
[2020-11-06] MEDS: Levothyroxine 25 MCG TABLET PO (05:54)
[2020-11-06] MEDS: Gabapentin 300 MG Capsule PO ×2 (05:55→15:04)
--- NOTE | 2020-11-06 06:19 | PN.HOSP_ITS ---
Subjective Subjective Patient reporting worsening withdrawal symptoms, COWS scores per discussion with staff have been lower but upon visualization patient does look consistent with higher scoring and requested reevaluation. Patient reports body aches, fatigue, restlessness. He slept and intermittent burst through the evening. Patient denies fevers, chills, chest pain or dyspnea. Objective Data Objective Data Vital Signs: Vital Signs Temp Pulse Resp BP Pulse Ox 97.7 F L 67 18 114/78 98 11/06/20 02:10 11/06/20 02:10 11/06/20 02:10 11/06/20 02:10 11/06/20 02:10 Oxygen Delivery Method Room Air Weight: 167 lb 1.766 oz Body Mass Index (BMI) 22.6 Intake & Output: Intake and Output for Last 24 Hours 11/04/20 11/05/20 11/06/20 23:59 23:59 23:59 Intake Total 480 / 720 1440 / 1440 Balance 480 / 720 1440 / 1440 Lab / Micro Data Result Diagrams: 11/05/20 14:00 11/05/20 14:00 Labs: Laboratory Results - last 24 hr 11/05/20 14:00: WBC 8.3, RBC 4.48 L, Hgb 12.9 L, Hct 41.7, MCV 93.1, MCH 28.8, MCHC 30.9 L, RDW Std Deviation 44.6 H, RDW Coeff of Maria Antonia 13.0, Plt Count 288, MPV 10.6, Immature Gran % (Auto) 0.400, Neut % (Auto) 54.1, Lymph % (Auto) 30.9, M jonathan % (Auto) 7.5, Eos % (Auto) 6.3 H, Baso % (Auto) 0.8, Absolute Neuts (auto) 4.5, Absolute Lymphs (auto) 2.56, Nucleated RBC % 0 11/05/20 14:00: Sodium 140, Potassium 3.5, Chloride 105, Carbon Dioxide 29.0, Anion Gap 6, BUN 10, Creatinine 0.78, Estim Creat Clear Calc 136.79, Est GFR (MDRD) Af Amer 140, Est GFR (MDRD) Non-Af 116, BUN/Creatinine Ratio 12.8, Glucose 68 L, Calcium 8.5 11/05/20 14:00: Ethyl Alcohol < 3.0 11/05/20 14:00: HIV 1&2 Antibody Non-Reactive 11/05/20 14:00: Total Bilirubin 0.20, Direct Bilirubin 0.08, AST 13 L, ALT 18, Alkaline Phosphatase 100, Total Protein 7.0, Albumin 3.4, Globulin 3.6 11/05/20 15:05: Urine Opiates Screen NEGATIVE, Urine Methadone Screen NEGATIVE, Ur Barbiturates Screen NEGATIVE, Ur Phencyclidine Scrn NEGATIVE, Ur Amphetamines Screen POSITIVE H, U Methamphetamin-MDMA POSITIVE H, U Benzodiazepines Scrn NEGATIVE, Urine Cocaine Screen NEGATIVE, U Cannabinoids Screen POSITIVE H, Ur Drug Screen Comment Physical Exam Narrative Physical Examination: General: Awake, alert, oriented x 3 and cooperative, laying in the PCU bed/MS status, appears in withdrawal, restless, uncomfortable appearing. Skin: Normal color, normal turgor, no icterus, no cyanosis except noted various abrasions and picked regions to bilateral hands and extremities. HEENT: AT/NC, EOMI, PERRLA, mildly dry MM. Lungs: CTA bilaterally, moderate effort, mild decrease BL bases, no rales, ronchi or wheezing. Heart: Mildly tachycardic with regular rhythm; no gallop, rub audible. Abdomen: Soft, mild generalized discomfort without rebound or guarding, ND, mildly hyperactive BS. Extremities: No cyanosis, clubbing, or edema. Neurological: Patient awake, alert, oriented as noted, cognitive function intact; pupils equally reactive to light and accommodation, cranial nerves II- XII grossly normal, moving all 4 extremities, no focal deficits, strength preserved however patient is restless, uncomfortable appearing, mildly agitated. Psychiatric: Affect appears uncomfortable, mildly agitated, no acute evidence of depressive or anxiety feelings. Assessment & Plan Assessment/Plan (1) Opiate withdrawal: PLAN: The patient is a 40 y/o M w/ PMHx: Bipolar disorder/Anxiety and Depression, Tobacco use, Hypothyroidism, Polysubstance abuse who presents to the [facility] ED on 11/05/20 with history of being released from nursing home 2 years prior and unfortunately relapsing over the last year with daily heroin as well as fentanyl snorting and methamphetamine smoking, last usage 5 AM, presenting with onset acute withdrawal. 1. Acute Opiate Withdrawal: Patient admitted to [facility], routine labs including CBC, BMP, urine for drug screen obtained in the ED, follow-up hepatic profile as not obtained in the ED not marked appearing. Patient initiated on Subutex protocol however COWS scores of been low per discussion with nursing staff but patient appearance highly consistent with withdrawal, encouraged reevaluation, will continue as needed tylenol, ibuprofen, bowel regimen, gabapentin, Bentyl, Vistaril, methocarbamol, clonidine, PRN nightly trazodone for insomnia, IV fluids, IV antiemetics. Case management consulted for discharge planning. 2. Polysubstance Abuse, Chronic: Denies IVDA currently or previously; however, to be cautious HIV and hepatitis panel obtained. HIV nonreactive, hepatitis panel remains pending. If positive for hepatitis C, patient would not currently be a candidate for hep C treatment currently as needs to be clean, sober x 6 months, documented attendance NA or AA meetings, counseling and ongoing negative drug screens. 3. Tobacco Abuse: Encouraged cessation, inpatient consultation per RT, NR if desired. 4. Anxiety and depression/bipolar disorder/PTSD: We will continue patient home Abilify and citalopram regimen as well as trazodone regimen, elevate to protocol. 5. Hypothyroidism: Continue home synthroid regimen. 6. DVT prophylaxis: Low risk, encourage ambulation. Charges/Coding Visit Charges Inpatient E&M: 73861 Subs Hosp L2
[2020-11-06 07:45] VITALS: O2SAT 95
[2020-11-06 08:10] VITALS: BP 118/75; PULSE 74; RESP 16; TEMP 36.4; O2SAT 99
[2020-11-06] MEDS: Citalopram 10 MG Tablet PO (08:41)
[2020-11-06] MEDS: Ondansetron 8 MG Tablet PO (08:41)
[2020-11-06] MEDS: ARIPiprazole 10 MG Tablet PO (08:41)
[2020-11-06] MEDS: Buprenorphine HCl 2 MG TAB.SUBL SL ×2 (10:03→18:01)
[2020-11-06 14:10] VITALS: BP 123/76; PULSE 75; RESP 18; TEMP 36.4; O2SAT 99
[2020-11-06 20:10] VITALS: BP 112/72; PULSE 89; RESP 18; TEMP 36.7; O2SAT 96
[2020-11-06] MEDS: traZODone 100 MG Tablet PO (22:57)
[2020-11-07] VITALS (8 sets, daily range): BP systolic 96–119; BP diastolic 52–68; PULSE 72–84; RESP 13–18; TEMP 36.3–37; O2SAT 95–98
[2020-11-07] MEDS: Buprenorphine HCl 2 MG TAB.SUBL SL ×3 (01:38→17:37)
[2020-11-07] MEDS: Levothyroxine 25 MCG TABLET PO (06:17)
--- NOTE | 2020-11-07 09:08 | ADDICTION ---
This brief writer met with PT to conduct ASAM, MSE, DUDIT assessments and to plan for d/c. All assessments completed. PT plans to attend a diagnostic assessment post d/c from [facility] in order to schedule ongoing services. PT declined residential recommendation at this time but is willing to consider after d/c from [facility]. PT reports independent transportation.
[2020-11-07] MEDS: Citalopram 10 MG Tablet PO (09:49)
[2020-11-07] MEDS: ARIPiprazole 10 MG Tablet PO (09:49)
--- NOTE | 2020-11-07 12:02 | PN.HOSP_ITS ---
Subjective Subjective Doing well, no issues overnight. Objective Data Objective Data Vital Signs: Vital Signs Temp Pulse Resp BP Pulse Ox 97.7 F L 75 16 102/65 97 11/07/20 11:50 11/07/20 11:50 11/07/20 11:50 11/07/20 11:50 11/07/20 11:50 Oxygen Delivery Method Room Air Weight: 167 lb 1.766 oz Body Mass Index (BMI) 22.6 Intake & Output: Intake and Output for Last 24 Hours 11/06/20 11/07/20 11/08/20 03:59 03:59 03:59 Intake Total 1720 / 1720 440 / 440 120 / 120 Balance 1720 / 1720 440 / 440 120 / 120 Lab / Micro Data Result Diagrams: 11/05/20 14:00 11/05/20 14:00 Physical Exam Const alert, oriented x3 and no apparent distress General Appearance: cooperative HEENT normocephalic and moist oral mucous membranes Eyes PERRL, EOMs intact bilaterally and conjunctivae normal Neck supple and no JVD Resp normal respiratory effort, no retractions, no use of accessory muscles and clear to auscultation bilaterally Auscultation: Negative for crackles, rales, rhonchi or wheezes Cardio regular rate, regular rhythm, S1 normal heart sound, S2 normal heart sound and n o murmurs GI soft to palpation, non-tender and non-distended; Negative for hepatosplenomegaly Extremity no clubbing, cyanosis or edema Skin no rashes or lesions noted Neuro no focal motor deficits and no sensory deficits noted Psych affect normal Appearance: appropriate Assessment & Plan Assessment/Plan (1) Opiate withdrawal: PLAN: 1. Acute opiate withdrawal/polysubstance abuse/tobacco abuse/anxiety and depression/bipolar disorder/PTSD -Continue with the opiate withdrawal protocol -HIV and hepatitis panel pending -Continue with patient's home mental health medications -Follow-up with 180 as an outpatient 2. Hypothyroidism -Stable -Continue Synthroid DVT: Ambulation Charges/Coding Visit Charges Inpatient E&M: 61821 Subs Hosp L2
[2020-11-07] MEDS: Ondansetron 8 MG Tablet PO (14:55)
[2020-11-07] MEDS: Gabapentin 300 MG Capsule PO (14:55)
[2020-11-07] MEDS: cloNIDine HCl 0.1 MG Tablet PO (17:38)
[2020-11-07] MEDS: Dicyclomine 10 MG Capsule 20 MG PO (17:38)
[2020-11-08] MEDS: Buprenorphine HCl 2 MG TAB.SUBL SL ×2 (01:04→09:39)
[2020-11-08 02:00] VITALS: BP 118/65; PULSE 70; RESP 14; TEMP 36.6; O2SAT 99
[2020-11-08] MEDS: Levothyroxine 25 MCG TABLET PO (06:43)
[2020-11-08 08:20] VITALS: O2SAT 97
[2020-11-08 08:25] VITALS: BP 102/60; PULSE 78; RESP 14; TEMP 36.2; O2SAT 99
[2020-11-08] MEDS: Citalopram 10 MG Tablet PO (08:25)
[2020-11-08] MEDS: ARIPiprazole 10 MG Tablet PO (08:26)
--- NOTE | 2020-11-08 09:40 | PCM.DC ---
Discharge Instructions Diet Discharge Diet: No restrictions Activity Discharge Activity: Return to Normal Activity Dressing / Incision Call your doctor if you observe: Fever of 101 or Higher, Shortness of breath, Dizziness, Swelling in the ankles, Chest pain and Increased palpitations (irregular heartbeat) Follow Up Care Test Results: Test results from this visit will be discussed in further detail at your follow-up appointment, if applicable. Discharge Plan Admission Admit Date/Time: 11/05/20 15:28 Attending Provider: Tray Bedolla Primary Care Provider: Eleanor Arroyo Discharge Orders/Prescriptions Prescriptions: Continued levothyroxine 25 mcg tablet 25 mcg PO DAILY Qty: 90 RF: 1 aripiprazole [Abilify] 10 mg tablet 10 mg PO DAILY Qty: 90 RF: 3 citalopram 10 mg tablet 10 mg PO DAILY Qty: 90 RF: 3 trazodone 50 mg tablet 50 mg PO QHS PRN (Reason: insomnia) Qty: 60 RF: 2 sildenafil (pulm.hypertension) 20 mg tablet 20 mg PO DAILY PRN (Reason: sexual activity) Qty: 30 RF: 1 Referrals / Follow Up: Eleanor Arroyo MD [Primary Care Provider] - In 1 Week Disposition Disposition (needs filled in before D/C Order can be placed): Home, Self Care
--- NOTE | 2020-11-08 09:45 | PHA.DC.MR ---
Pharmacy Service has performed discharge medication reconciliation for this patient. The patient's discharge medication list was reviewed for discrepancies and discrepancies were resolved. Home Medications levothyroxine 25 mcg tablet 25 mcg PO DAILY #90 tab 05/10/20 aripiprazole 10 mg tablet 10 mg PO DAILY #90 tab 05/16/20 citalopram 10 mg tablet 10 mg PO DAILY #90 tab 05/16/20 trazodone 50 mg tablet 50 mg PO QHS PRN #60 tab 05/16/20 sildenafil (pulm.hypertension) 20 mg tablet 20 mg PO DAILY PRN #30 tab 10/26/20
--- NOTE | 2020-11-08 13:30 | PCM.DC.SUM ---
Providers Date of Admission: 11/05/20 Primary Care Physician: Dr. Eleanor Arroyo MD Reason For Visit: ACUTE OPIATE WITHDRAWAL Diagnosis Discharge Diagnosis (1) Opiate withdrawal: Status: Acute Code(s): F11.23 - Opioid dependence with withdrawal Medications at Discharge Home Medications levothyroxine 25 mcg tablet 25 mcg PO DAILY #90 tab 05/10/20 aripiprazole 10 mg tablet 10 mg PO DAILY #90 tab 05/16/20 citalopram 10 mg tablet 10 mg PO DAILY #90 tab 05/16/20 trazodone 50 mg tablet 50 mg PO QHS PRN #60 tab 05/16/20 sildenafil (pulm.hypertension) 20 mg tablet 20 mg PO DAILY PRN #30 tab 10/26/20 Hospital Course Operations None Procedures None Summary of Care Provided Minutes Spent on Discharge: 35 Hospital Course: Per HPI: The patient is a 40 y/o M w/ PMHx: Bipolar disorder/Anxiety and Depression, Tobacco use, Hypothyroidism, Polysubstance abuse (Heroin snorted, Fentanyl snorted, Methamphetamines smoked, last usage 5 am on day of ED presentation) who presents to the [facility] ED on 11/05/20 with history of being released from jail 2 years prior and unfortunately relapsing over the last year with daily heroin as well as fentanyl snorting and methamphetamine smoking, last usage 5 AM on day of presentation with significant other admitting herself the day prior to [facility] for withdrawal treatment prompting patient to attempt to achieve clean status with onset of very mild abdominal cramping, minimal body aches, fatigue and mild restlessness but notes that his symptoms seem to worsen later than most individuals he knows. Work-up in the ED included T 96 temporally, heart rate 95, BP 116/73, respiratory rate 16, 100% room air, CBC with WC 8.3, hemoglobin 12.9, platelet 288 without marked shift, BMP with glucose 68, urine drug screen pending, ethyl alcohol less than 3. Hospital Course: 1. Acute opiate withdrawal/polysubstance abuse/tobacco abuse/anxiety and depression/bipolar disorder/[id number]-old male presents to the hospital requesting detox, he does have a history of polysubstance abuse including heroin, fentanyl, meth. He denies any injecting, his hepatitis panel still pending however his HIV is nonreactive. He would like to follow-up with 180 as an outpatient to decide on therapy and declined residential placement at this time. He is feeling much better today and wants to go home this morning. His last dose of Subutex is technically this evening at 10 PM but he did not want a wait until then and therefore he was discharged home today. He expressed understanding of the risk and benefits of discharge today. 2. Hypothyroidism chronic medical condition which complicates his care. His home medications were continued where appropriate Physical Exam Const alert, oriented x3 and no apparent distress General Appearance: cooperative HEENT normocephalic and moist oral mucous membranes Eyes PERRL, EOMs intact bilaterally and conjunctivae normal Neck supple and no JVD Resp normal respiratory effort, no retractions, no use of accessory muscles and clear to auscultation bilaterally Auscultation: Negative for crackles, rales, rhonchi or wheezes Cardio regular rate, regular rhythm, S1 normal heart sound, S2 normal heart sound and no murmurs GI soft to palpation, non-tender and non-distended; Negative for hepatosplenomegaly Extremity no clubbing, cyanosis or edema Skin no rashes or lesions noted Neuro no focal motor deficits and no sensory deficits noted Psych affect normal Appearance: appropriate Weight / BMI Weight Weight: 167 lb 1.766 oz Body Mass Index (BMI) 22.6 ABG / Lab / Microbiology Data Result Diagrams: 11/05/20 14:00 11/05/20 14:00 D/C Instructions Discharge Diet: No restrictions Call your doctor if you observe: Fever of 101 or Higher, Shortness of breath, Dizziness, Swelling in the ankles, Chest pain and Increased palpitations (irregular heartbeat) Meaningful Use Info Meaningful Use Diagnoses (Choose all that apply): None applicable Discharge Plan Admission Admit Date/Time: 11/05/20 15:28 Attending Provider: Tray Bedolla Primary Care Provider: Eleanor Arroyo Instructions Additional Instructions / Restrictions: Patient Problems: Altered Health Status related to Hospitalization Patient Goals: *Optimal Level of Health *Keep Appointments *Medication Compliance *Remain Safe Discharge Orders/Prescriptions Prescriptions: Continued levothyroxine 25 mcg tablet 25 mcg PO DAILY Qty: 90 RF: 1 aripiprazole [Abilify] 10 mg tablet 10 mg PO DAILY Qty: 90 RF: 3 citalopram 10 mg tablet 10 mg PO DAILY Qty: 90 RF: 3 trazodone 50 mg tablet 50 mg PO QHS PRN (Reason: insomnia) Qty: 60 RF: 2 sildenafil (pulm.hypertension) 20 mg tablet 20 mg PO DAILY PRN (Reason: sexual activity) Qty: 30 RF: 1 Referrals / Follow Up: Eleanor Arroyo MD [Primary Care Provider] - In 1 Week (Please call to schedule follow up appointment) Disposition Disposition (needs filled in before D/C Order can be placed): Home, Self Care Charges/Coding Visit Charges Inpatient E&M: 89133 Disch Hosp
== END 2020-11-08 10:43 | disposition home or self-care (01) | DRG 773 ==
LOC: ED 15:25 → PCU 15:49
PROVIDERS: Admitting Provider Family Medicine; Emergency Provider Emergency Medicine; PCP Internal Medicine; Visit Provider Family Medicine
DX: F11.23 Opioid dependence with withdrawal (principal); F19.10 Other psychoactive substance abuse, uncomplicated; E03.9 Hypothyroidism, unspecified; G47.00 Insomnia, unspecified; F43.10 Post-traumatic stress disorder, unspecified; F31.9 Bipolar disorder, unspecified; F17.210 Nicotine dependence, cigarettes, uncomplicated; Z79.890 Hormone replacement therapy; Z79.899 Other long term (current) drug therapy; F41.9 Anxiety disorder, unspecified
CPT/HCPCS: 36415; 80048; 80076; 80307; 82077; 85025; 86703; 86704; 86705; 86706; 86707; 86803; 87340; 87350; 96360; 96361; 97802; 99218; 99283; 99406; J7120; G0378

== ENCOUNTER → 2020-12-22 | Outpatient (CLI) | payer MEDICAID, SELFPAY | END | disposition home or self-care (01) | LOC: LABSPEC 12-23 07:44 | PROVIDERS: PCP Internal Medicine; Referring Provider Physician Assistant; Visit Provider Physician Assistant | DX: R09.81 Nasal congestion (principal) | CPT/HCPCS: 87635; U0005; U0003 ==

== ENCOUNTER 2021-09-20 17:16 | Emergency (ER) | payer MEDICAID, SELFPAY ==
[2021-09-20 17:17] VITALS: BP 136/82; PULSE 72; RESP 16; TEMP 36.7; O2SAT 97; BMI 23.8
--- NOTE | 2021-09-20 17:22 | EDS_ITS ---
HPI HPI - Fall History of Present Illness Chief Complaint: Fall Informant: patient Occured/Mechanism Occurred: Today Narrative: Accidentally stepped off of a roof falling to the ground Fall from Height (ft): 10-11 Usually ambulates: Without assistance Pain/Injury Location: Left upper extremity and left hip Quality of Pain: Aching Current Severity: Severe Maximum Severity: Severe Worsened by: Moving Relieved by: Resting Associated Symptoms Associated Symptoms: Positive for Loss of function (Left hip/lower extremity) and Inability to ambulate; Negative for Parasthesias, Weakness, Loss of consciousness and Amnesia Narrative Narrative: Patient states he landed on his left side and did not hit his head, injure his neck or back, he is having severe pain in his left hip, and only very mild pain in his left elbow which is swollen and bleeding. [facility] Medical History Acute insomnia Anxiety and depression Bipolar disorder Chronic bronchitis Drug abuse Exposure to COVID-19 virus H/O emotional problems History of back problems Hypothyroidism Nephrotic syndrome PTSD (post-traumatic stress disorder) Home Medications NK 09/20/21 [History Last Taken Unknown] Allergy/AdvReac Type Severity Reaction Status Date / Time No Known Allergies Allergy Verified 09/20/21 17:22 Family History Grandfather Cancer Father Suicide Anxiety and depression Mother Alcohol abuse Surgical History No history of previous surgery Social History household members: significant other and family housing: homeless current occupational status: unemployed Smoking Status: Current every day smoker tobacco type: cigarettes quit status: considering quitting alcohol intake: never substance use type: marijuana, heroin, methamphetamine and other details: Fentanyl, Heroin (snorted), Methamphetamine (smoked) frequency: 3-4 times per week do you feel safe at home: Yes ROS ROS ED Constitutional Constitutional ED: Denies chills or fever(s) Eyes Eyes: Denies change in vision or diplopia ENT ENT ED: Denies ear pain, epistaxis, facial pain or rhinorrhea Cardiovascular Cardiovascular: Denies chest pain or palpitations Respiratory/Chest Respiratory/Chest: Denies cough or dyspnea Gastrointestinal Gastrointestinal: Denies abdominal pain, diarrhea, melena, nausea or vomiting Genitourinary Genitourinary ED: Denies dysuria or hematuria Musculoskeletal Musculoskeletal: Reports extremity pain; Denies back pain or neck pain Integumentary Reports laceration; Denies abscess, Abrasions or rash Neurologic Neurologic: Denies confusion, headache(s), paresthesias or weakness EXAM Physical Exam Const Vital Signs: 09/20/21 17:17 09/20/21 17:23 09/20/21 19:04 Temperature 98.0 F Temperature Source Oral Pulse Rate 72 78 Respiratory Rate 16 16 Respiratory Effort Normal Non-Labored Respiratory Depth Normal Respiratory Pattern Normal Blood Pressure 136/82 H 126/76 H Blood Pressure Mean 100 92 Pulse Ox 97 99 Oxygen Delivery Method Room Air Room Air 09/20/21 20:03 Temperature Temperature Source Pulse Rate 86 Respiratory Rate 16 Respiratory Effort Respiratory Depth Respiratory Pattern Blood Pressure 127/74 H Blood Pressure Mean 91 Pulse Ox 93 Oxygen Delivery Method Room Air Positive well nourished and well developed General Appearance ED: well developed and NAD HEENT Reports TM's clear and nasal mucous membranes and turbinates normal atraumatic Face and Sinus: Negative for facial tenderness Tympanic Membrane ED: Yes TM's clear Eyes PERRL and EOMs intact bilaterally Visual Acuity: other Other Details: no entrapment or pain with extraocular movements Neck full ROM and supple General: Negative for tenderness Chest Wall inspection of chest normal and palpation of chest normal Chest: symmetrical chest wall rise; Negative for crepitus or tenderness Resp normal respiratory effort and clear to auscultation bilaterally Percussion: other equal BS bilat Cardio no murmurs Rate: regular rate Rhythm: regular rhythm GI normal to inspection, nondistended, normoactive bowel sounds, soft to palpation and non-tender Back/Spine normal ROM Cervical Spine: Negative for cervical spine tenderness Thoracic Spine / Upper Back: Negative for thoracic spinal tenderness Lumbar Spine / Lower Back: Negative for lumbar spinal tenderness Extremity Extremity Narrative: Tender left olecranon. Full range of motion of the left elbow which is very swollen, including full extension. Laceration just distal to the olecranon process, 2 cm full-thickness. Painless pronation and supination. Full range of motion of the shoulder and the wrist and hand without any difficulty or pain. Very limited range of motion of the left hip although he does not have significant discomfort with just gentle logroll internal/external rotation. It is mildly shortened. Limited range of motion of the knee and ankle due to the pain at the hip, but there is no tenderness or signs of trauma in those areas. The right side is atraumatic and full range of motion. General Extremety ED: Yes tenderness Neuro oriented x3, CN's II-XII intact bilaterally, moves all extremities, no focal motor deficits and no sensory deficits noted Renato Coma Scale: document GCS findings Spontaneous Obeys Commands Oriented 15 Sensorium / Orientation: awake and alert Psych mental status grossly normal and thought process normal Skin Skin Narrative: Laceration left elbow see above Lesions: no lesions Rashes: no rashes MDM MDM MDM Narrative Medical decision making narrative: Initially, screening chest x-ray 1 view on my interpretation negative/normal, left hip 3 view on my interpretation may show an acetabulum fracture, difficult to tell but otherwise unremarkable, and left elbow 3 views were obtained, the latter of which to my interpretation shows an obviously displaced olecranon fracture, and with the laceration directly over it, this is an open fracture which will require transfer to a trauma center. He was stable, I think he needed a CT of his pelvis to show why he is having so much pain there in his hip, but knowing that he has an open fracture and needs to go to a trauma center, I discussed with him at that point about where he would prefer to be transferred and [facility] I called to discuss with someone there, however they had 3 traumas that they were busy with and I was advised that a trauma surgeon would not be available to except to transfer for maybe another hour. I discussed that with the patient, he said he would wait and refused to go to any different hospital. Therefore, I took advantage of the delay by pisano scanning the patient given the mechanism of injury, and distracting injury. At this time, those scan results are pending, but on my interpretation of them he has a left olecranon fracture and inferior pubic ramus. I discussed this with Dr. Merrill with trauma at [facility], and also discussed with the ED physician. He is excepted and will be transferred by ground there. When I discussed with the patient, he said also that his right elbow and wrist were starting to hurt whereas initially they were not. He has tenderness at the right radial head, and the distal radius. He can range both of them but limited due to pain. X-rays of both of them were obtained; 3 views right elbow on my interpretation shows nondisplaced radial head fracture, 3 views right wrist on my interpretation shows fractured scaphoid across the waist. He was splinted with regards to his left elbow long arm posterior splint, neurovascularly intact distally afterwards, same with a right wrist thumb spica. He was given pain medications vitals remained stable, labs were obtained, and he will be transferred to the trauma center. Lab Data Attestation: I reviewed the patient's lab results. Labs: Laboratory Results - last 24 hr 09/20/21 09/20/21 17:25 17:25 WBC 12.7 H RBC 4.19 L Hgb 12.1 L Hct 37.9 L MCV 90.5 MCH 28.9 MCHC 31.9 L RDW Std Deviation 44.1 H RDW Coeff of Maria Antonia 13.3 Plt Count 237 MPV 11.9 Immature Gran % (Auto) 1.200 H Neut % (Auto) 74.9 H Lymph % (Auto) 14.9 L Houghton % (Auto) 6.2 Eos % (Auto) 2.0 Baso % (Auto) 0.8 Absolute Neuts (auto) 9.5 H Absolute Lymphs (auto) 1.90 Nucleated RBC % 0 Sodium 143 Potassium 3.2 L Chloride 110 H Carbon Dioxide 25.0 Anion Gap 8 BUN 9 Creatinine 0.99 Estim Creat Clear Calc 106.69 Est GFR (MDRD) Af Amer 106 Est GFR (MDRD) Non-Af 88 BUN/Creatinine Ratio 9.1 L Glucose 210 H Calcium 8.7 Total Bilirubin 0.30 AST 52 H ALT 39 Alkaline Phosphatase 63 Total Protein 6.5 Albumin 3.4 Globulin 3.1 Albumin/Globulin Ratio 1.1 Radiography Diagnostic Testing: Clinical Impression(s) from Imaging Studies Chest X-Ray 09/20/21 17:45 IMPRESSION: No radiographic evidence of acute cardiopulmonary disease. Electronically Signed: Darrius Mckeon MD at 18:56 EDT , Elbow X-Ray 09/20/21 17:45 IMPRESSION: Comminuted fracture through the olecranon. Electronically Signed: Darrius Mckeon MD at 19:04 EDT , Hip/Pelvis X-Ray 09/20/21 17:45 IMPRESSION: No acute findings in the pelvis or left hip. Electronically Signed: Darrius Mckeon MD at 19:05 EDT , Knee X-Ray 09/20/21 17:45 IMPRESSION: There are no acute findings. Electronically Signed: Ebenezer Oden MD at 18:23 EDT , Brain CT 09/20/21 19:20 IMPRESSION: Negative head/brain CT without intravenous contrast. Electronically Signed: Darrius Mckeon MD at 20:12 EDT , Cervical Spine CT 09/20/21 19:20 IMPRESSION: No evidence of acute cervical spinal fracture or spondylolisthesis. Electronically Signed: Darrius Mckeon MD at 20:14 EDT , Chest/Abdomen/Pelvis CT 09/20/21 19:20 IMPRESSION: 1. There are no acute findings in the chest. 2. Acute left sacral ala fracture. Acute fracture of the left superior and inferior pubic ramus. Fracture of the left acetabulum. No hip dislocation. Left pelvic sidewall hematoma. Electronically Signed: Ebenezer Oden MD at 20:27 EDT , Elbow X-Ray 09/20/21 20:15 IMPRESSION: Anterior posterior fat pad sign. Impaction fracture of the radial head. Electronically Signed: Ebenezer Oden MD at 20:33 EDT , Procedures Upper Extremity Splints Upper Extremity Splint: Orthoglass, Long arm (Left posterior, neurovascular intact distally after placement) and Thumb Spica (Right volar; neurovascularly intact distally after placement) Splint Fabrication: Fabricated Location: Right (Wrist) and Left (Posterior long-arm) Discharge Plan Triage Chief Complaint: Fall ED Provider: Henry Franco Dx/Rx/DC Orders Clinical Impression: Open displaced fracture of olecranon process of left ulna with intraarticular extension, Closed fracture of left acetabulum, Fracture of left inferior pubic ramus, Fall from roof as cause of accidental injury, Closed nondisplaced fracture of head of right radius, Closed displaced fracture of scaphoid of right wrist Prescriptions: No Action NK RF: 0 Primary Care Provider: Care Physician,No Primary Referrals: Care Physician,No Primary [Primary Care Provider] - Disposition Disposition: Acute Care Hospital Discharge Location: [facility]
[2021-09-20] MEDS: Ondansetron 4 MG/2 ML Vial IV (17:32)
[2021-09-20] MEDS: Morphine 4 MG/ML Syringe IV (17:33)
[2021-09-20] MEDS: Lidocaine 1% /Epi 1:100 (20ml) 20 ML Vial INFILT (17:33)
--- NOTE | 2021-09-20 17:45 | RAD_ITS ---
EXAM: XR CHEST, 1 VIEW CLINICAL INDICATION: fall/trauma TECHNIQUE: Frontal view of the chest. This report was created using [employer] report generation technology. COMPARISON: None. FINDINGS: LUNGS AND PLEURAL SPACES: Unremarkable. No consolidation or edema. No pneumothorax. No effusion. HEART: Unremarkable. Cardiac silhouette not enlarged. MEDIASTINUM: Central airways and mediastinal contour are unremarkable. BONES/JOINTS: Unremarkable. SOFT TISSUES: Unremarkable. RAD/Chest 1 View IMPRESSION: No radiographic evidence of acute cardiopulmonary disease. Electronically Signed: Darrius Mckeon MD at 18:56 EDT ,
--- NOTE | 2021-09-20 17:45 | RAD_ITS ---
EXAM: XR LEFT ELBOW COMPLETE, 3 OR MORE VIEWS CLINICAL INDICATION: injury TECHNIQUE: Frontal, lateral and oblique views of the left elbow. This report was created using [employer] report generation technology. COMPARISON: None. FINDINGS: BONES/JOINTS: There is a fracture of the olecranon extending to the trochlea. There is soft tissue swelling present. There is no displacement of the anterior or posterior fat pads. Preservation of the joint space. No destructive or sclerotic lesions. SOFT TISSUES: See above. RAD/Elbow min 3 Views IMPRESSION: Comminuted fracture through the olecranon. Electronically Signed: Darrius Mckeon MD at 19:04 EDT ,
--- NOTE | 2021-09-20 17:45 | RAD_ITS ---
EXAM: XR LEFT HIP WITH PELVIS WHEN PERFORMED, 2 OR 3 VIEWS CLINICAL INDICATION: injury TECHNIQUE: Two or three views of the left hip with pelvis when performed. This report was created using [employer] report generation technology. COMPARISON: None. FINDINGS: BONES/JOINTS: There is a focus of increased density in left femoral neck which may represent a bone island. No displaced fracture. Sacroiliac joint is unremarkable. No widening of the pubic symphysis. The articular structures are unremarkable. SOFT TISSUES: Unremarkable. No soft tissue swelling or gas. RAD/HIP, UNI W/ Pelvis 2-3 Views IMPRESSION: No acute findings in the pelvis or left hip. Electronically Signed: Darrius Mckeon MD at 19:05 EDT ,
--- NOTE | 2021-09-20 17:45 | RAD_ITS ---
STUDY: XR Knee 1 or 2 Views 09/20/2021 6:21 PM REASON FOR EXAM: Male, 41 years old. injury Technologist Notes fall 10 feet from roof. left knee pain. Technologist Notes fall 10 feet from roof. left knee pain. TECHNIQUE: XR Knee 1 or 2 Views LEFT COMPARISON: None FINDINGS: Normal visualized distal femur. Normal visualized proximal tibia and fibula. Normal proximal tibiofibular articulation. Normal medial femorotibial compartment. Normal lateral femorotibial compartment. Normal patellofemoral articulation. The soft tissue structures are unremarkable. RAD/Knee 1 or 2 Views IMPRESSION: There are no acute findings. Electronically Signed: Ebenezer Oden MD at 18:23 EDT ,
--- NOTE | 2021-09-20 18:12 | CM.ED ---
SW Note Referral Source: Case Find Referral Reason: No PCP SW met with patient and his girlfriend. Patient confirmed he has no PCP. SW provided patient with [facility] Healthcare Provider List and encouraged patient to secure an PCP. NO questions or issues voiced. SW remains available. Plan: Resources provided. Tammy KNAPP
[2021-09-20] MEDS: Diphth,Pertuss(Acell),Tet Vac 0.5 ML Vial IM (18:58)
[2021-09-20 19:04] VITALS: BP 126/76; PULSE 78; RESP 16; O2SAT 99
[2021-09-20 19:17] LABS: Absolute Neutrophil Count 9.5 X10^3/uL (2.0-7.7); Basophil% 0.8 % (0-1); Eosinophil# 0.25 X10^3/uL; Hematocrit 37.9 % (40-54); Hemoglobin 12.1 g/dL (13.0-16.5); Lymphocyte % 14.9 % (19-41); Mean Corp Hgb Conc 31.9 g/dL (32-36); Mean Corpuscular Hgb 28.9 pg (27.0-32.0); Mean Corpuscular Volume 90.5 fL (80-94); Mean Platelet Vol. 11.9 fl (6.2-12.0); Monocyte# 0.79 X10^3/uL; Monocyte% 6.2 % (0-10); NRBC Flagged by Analyzer 0 % (0-5); Neutrophil # 9.52 X10^3/uL (2.7-7.7); Neutrophil % 74.9 % (47-70); Platelet Count 237 K/mm3 (150-450); RBC Distribution Width CV 13.3 % (11.6-14.6); RBC Distribution Width SD 44.1 fl (35.1-43.9); Red Blood Count 4.19 M/mm3 (4.6-6.2); White Blood Count 12.7 K/mm3 (4.4-11.0)
--- NOTE | 2021-09-20 19:20 | CT_ITS ---
EXAM: CT HEAD WITHOUT INTRAVENOUS CONTRAST CLINICAL INDICATION: fall TECHNIQUE: Multiple axial images were obtained of the head without intravenous contrast. This CT exam was performed using one or more of the following dose reduction techniques: automated exposure control, adjustment of the mA and/or kV according to patient size, and/or use of iterative reconstruction technique. This report was created using [employer] report generation technology. COMPARISON: None. FINDINGS: BRAIN AND EXTRA-AXIAL SPACES: Unremarkable. No intra- or extra-axial hemorrhage. No evidence of acute infarct. No intracranial mass or mass effect. There is preservation of the guerin/white matter interface. Posterior fossa structures are unremarkable. Ventricles are appropriate for age. No hydrocephalus. Basal cisterns are patent. BONES/JOINTS: Unremarkable. No discrete lytic or blastic abnormalities. SINUSES: Unremarkable as visualized. Clear. MASTOID AIR CELLS: Unremarkable. Clear. ORBITS: Visualized globes, extraocular muscles, optic nerves and retrobulbar fat appear unremarkable. CT/Brain/Head without Contrast IMPRESSION: Negative head/brain CT without intravenous contrast. Electronically Signed: Darrius Mckeon MD at 20:12 EDT ,
--- NOTE | 2021-09-20 19:20 | CT_ITS ---
EXAM: CT CHEST, ABDOMEN AND PELVIS WITH INTRAVENOUS CONTRAST CLINICAL INDICATION: trauma TECHNIQUE: Helically acquired images were obtained of the chest, abdomen and pelvis with intravenous contrast. This CT exam was performed using one or more of the following dose reduction techniques: automated exposure control, adjustment of the mA and/or kV according to patient size, and/or use of iterative reconstruction technique. This report was created using [employer] report generation technology. CONTRAST: 100ML OF ISOVUE 300 RADIATION DOSE: CTDIvol = 17.98 mGy, DLP = 1840.01 mGy-cm COMPARISON: None. FINDINGS: CHEST: LUNGS AND PLEURAL SPACES: Unremarkable. No mass. No consolidation or edema. No pleural effusion or thickening. No pneumothorax. HEART: Unremarkable. Heart size is normal. No pericardial effusion. No significant coronary artery calcifications. MEDIASTINUM: Unremarkable. No mediastinal or hilar adenopathy. Esophagus is unremarkable. No hiatal hernia. THYROID: Unremarkable. No thyroid lesions. ABDOMEN: LIVER: Unremarkable. Homogeneous. No focal mass. GALLBLADDER AND BILE DUCTS: Unremarkable. No calcified gallstones. No gallbladder distention or wall edema. No intra- or extrahepatic biliary ductal dilation. PANCREAS: Unremarkable. No focal cystic or solid mass. SPLEEN: Unremarkable. Normal size without focal cystic or solid mass. ADRENALS: Unremarkable. No nodules. KIDNEYS AND URETERS: Unremarkable. Normal renal size and position. No hydronephrosis. STOMACH AND BOWEL: There is an umbilical hernia containing fat. There is no bowel involvement. There is no incarceration. There is no findings suggesting that this is causing a bowel obstruction. No focal inflammatory change. PELVIS: APPENDIX: The appendix is visualized and is normal. BLADDER: Unremarkable. REPRODUCTIVE: Unremarkable as visualized. No mass. CHEST, ABDOMEN and PELVIS: INTRAPERITONEAL SPACE: Unremarkable. No ascites or other fluid collection. No free air. BONES/JOINTS: Acute left sacral ala fracture. Acute fracture of the left superior and inferior pubic ramus. Fracture of the left acetabulum. No hip dislocation. Left pelvic sidewall hematoma. No suspicious lytic or blastic abnormality. SOFT TISSUES: See above. VASCULATURE: Unremarkable. Aorta is non-dilated. No aortic dissection. No obvious central pulmonary embolism although this study was not performed with the pulmonary embolism protocol. LYMPH NODES: Unremarkable. No enlarged lymph nodes. OTHER FINDINGS: There are no acute findings in the chest. CT/CT Chest, Abd, Pel w/Contrast IMPRESSION: 1. There are no acute findings in the chest. 2. Acute left sacral ala fracture. Acute fracture of the left superior and inferior pubic ramus. Fracture of the left acetabulum. No hip dislocation. Left pelvic sidewall hematoma. Electronically Signed: Ebenezer Oden MD at 20:27 EDT Reading Location ID and State: [facility] / [place] , Service support ,
--- NOTE | 2021-09-20 19:20 | CT_ITS ---
EXAM: CT CERVICAL SPINE WITHOUT INTRAVENOUS CONTRAST CLINICAL INDICATION: fall TECHNIQUE: Helically acquired images were obtained of the cervical spine without intravenous contrast. 2D reformatted images were reviewed. This CT exam was performed using one or more of the following dose reduction techniques: automated exposure control, adjustment of the mA and/or kV according to patient size, and/or use of iterative reconstruction technique. This report was created using [employer] report generation technology. COMPARISON: None. FINDINGS: VERTEBRAE: Unremarkable. No fracture. No traumatic subluxation. No discrete lytic or blastic abnormality. Normal alignment. Normal craniocervical junction and cervicothoracic junction. DISCS/SPINAL CANAL/NEURAL FORAMINA: Unremarkable. Disc heights are preserved. No critical stenosis. SOFT TISSUES: Unremarkable. No prevertebral soft tissue swelling. LYMPH NODES: Unremarkable. No cervical adenopathy. LUNG APICES: Unremarkable as visualized. Clear. CT/Spine Cervical without Contras IMPRESSION: No evidence of acute cervical spinal fracture or spondylolisthesis. Electronically Signed: Darrius Mckeon MD at 20:14 EDT ,
[2021-09-20] MEDS: fentaNYL 100 MCG/2 ML Ampul 50 MCG IV (19:30)
[2021-09-20 19:56] LABS: ALB/GLOB Ratio 1.1 RATIO (0.9-2.4); AST(SGOT) 52 U/L (15-37); Alanine Aminotransfer ALT/SGPT 39 U/L (16-61); Albumin, Serum 3.4 g/dL (3.2-5.0); Alkaline Phosphatase 63 U/L (45-117); Anion Gap 8 (5-15); BUN 9 mg/dL (7-18); BUN/Creat Ratio 9.1 RATIO (10-20); Calcium,Total 8.7 mg/dL (8.5-10.1); Chloride 110 mmol/L (98-107); Creatinine, Serum 0.99 mg/dL (0.70-1.30); EST Glomerular Filtration Rate 88 mL/min (>60); Est Glom Filt Rate - Afr Amer 106 mL/min (>60); Estimated Creatinine Clearance 106.69 ml/min; Globulin 3.1 g/dL (2.2-4.2); Glucose 210 mg/dL (74-106); Potassium 3.2 mmol/L (3.5-5.1); Protein, Total 6.5 g/dL (6.4-8.2); Sodium Level 143 mmol/L (136-145)
--- NOTE | 2021-09-20 20:02 | RAD_ITS ---
EXAM: XR RIGHT WRIST COMPLETE, 3 OR MORE VIEWS CLINICAL INDICATION: fall/injury TECHNIQUE: Frontal, lateral and oblique views of the right wrist. This report was created using [employer] report generation technology. COMPARISON: None. FINDINGS: BONES/JOINTS: There is a fracture through the waist of the scaphoid bone. Preservation of the joint space. No sclerotic or destructive changes observed. SOFT TISSUES: Unremarkable. No soft tissue swelling or gas. No radiopaque foreign body. RAD/Wrist min 3 Views IMPRESSION: Fracture through the waist of the scaphoid. Electronically Signed: Darrius Mckeon MD at 21:04 EDT ,
[2021-09-20 20:03] VITALS: BP 127/74; PULSE 86; RESP 16; O2SAT 93
--- NOTE | 2021-09-20 20:15 | RAD_ITS ---
EXAM: XR RIGHT ELBOW COMPLETE, 3 OR MORE VIEWS CLINICAL INDICATION: fall/injury TECHNIQUE: Frontal, lateral and oblique views of the right elbow. This report was created using [employer] report generation technology. COMPARISON: None. FINDINGS: BONES/JOINTS: Anterior posterior fat pad sign. Impaction fracture of the radial head. Preservation of the joint space. No destructive or sclerotic lesions. SOFT TISSUES: Unremarkable. No soft tissue swelling or gas. No radiopaque foreign body. RAD/Elbow min 3 Views IMPRESSION: Anterior posterior fat pad sign. Impaction fracture of the radial head. Electronically Signed: Ebenezer Oden MD at 20:33 EDT ,
[2021-09-20] MEDS: 0.9% Normal Saline 1,000 ML 200 ML IV (20:35)
[2021-09-20 20:54] VITALS: BP 139/79; PULSE 84; RESP 16; TEMP 36.7; O2SAT 93
== END 2021-09-20 20:55 | disposition short-term general hospital (02) ==
PROVIDERS: Emergency Provider Emergency Medicine; Visit Provider Emergency Medicine
DX: S52.032B Displaced fracture of olecranon process with intraarticular extension of left ulna, initial encounter for open fracture type I or II (principal); S32.592A Other specified fracture of left pubis, initial encounter for closed fracture; S32.402A Unspecified fracture of left acetabulum, initial encounter for closed fracture; S62.001A Unspecified fracture of navicular [scaphoid] bone of right wrist, initial encounter for closed fracture; S52.124A Nondisplaced fracture of head of right radius, initial encounter for closed fracture; W13.2XXA Fall from, out of or through roof, initial encounter; J42 Unspecified chronic bronchitis; F31.9 Bipolar disorder, unspecified; R26.2 Difficulty in walking, not elsewhere classified; E03.9 Hypothyroidism, unspecified; F17.210 Nicotine dependence, cigarettes, uncomplicated; Z59.00 Homelessness unspecified
CPT/HCPCS: 29105; 29125; 70450; 71045; 71260; 72125; 73080; 73110; 73502; 73560; 74177; 80053; 85025; 90715; 96365; 96375; 99285; J7030; Q9967; A4216; J2405

== ENCOUNTER 2021-10-21 11:16 | Emergency (ER) | payer MEDICAID, SELFPAY ==
[2021-10-21 11:19] VITALS: BP 144/99; PULSE 103; RESP 17; TEMP 36.5; O2SAT 100; BMI 23.1
--- NOTE | 2021-10-21 11:42 | EDS_ITS ---
HPI History of Present Illness Chief Complaint: Wound Narrative Narrative: Last month patient fell off a roof. He was seen here and transferred to referral center. He had surgery done in multiple areas. 1 of these was his left elbow. He states ever since he had surgery he has had a little drainage from the wound. It has never stopped. But it got red about 2 weeks ago. He has been in a custodial/rehab since the accident. He was just discharged today. But they did not write for any antibiotics. He states he has been on antibiotics for 2 days. They did a wound culture that showed MRSA. He has follow-up with his surgeon up at [facility]. He has no fevers chills sweats nausea vomiting. He states the elbow is in a different today it is just that he feels he needs to stay on antibiotics. No other complaints [facility] Medical History Acute insomnia Anxiety and depression Bipolar disorder Chronic bronchitis Drug abuse Exposure to COVID-19 virus H/O emotional problems History of back problems Hypothyroidism Nephrotic syndrome PTSD (post-traumatic stress disorder) Home Medications cephalexin 500 mg capsule 500 mg PO Q6 #40 caps 10/21/21 [Rx Last Taken Unknown] sulfamethoxazole 800 mg-trimethoprim 160 mg tablet (Bactrim DS) 1 tab PO BID #20 tabs 10/21/21 [Rx Last Taken Unknown] Allergy/AdvReac Type Severity Reaction Status Date / Time No Known Allergies Allergy Verified 10/21/21 11:18 Family History Grandfather Cancer Father Suicide Anxiety and depression Mother Alcohol abuse Surgical History No history of previous surgery Social History household members: significant other and family housing: homeless current occupational status: unemployed Smoking Status: Current every day smoker tobacco type: cigarettes quit status: considering quitting alcohol intake: never substance use type: marijuana, heroin, methamphetamine and other details: Fentanyl, Heroin (snorted), Methamphetamine (smoked) frequency: 3-4 times per week do you feel safe at home: Yes ROS ROS ED Constitutional Constitutional ED: Denies chills, fever(s) or subjective Eyes Eyes: Denies change in vision ENT ENT ED: Denies rhinorrhea Cardiovascular Cardiovascular: Denies chest pain or palpitations Respiratory/Chest Respiratory/Chest: Denies cough or dyspnea Gastrointestinal Gastrointestinal: Denies abdominal pain or nausea Genitourinary Genitourinary ED: Denies dysuria Musculoskeletal Musculoskeletal: Reports other Details: Left elbow soreness and redness. He has multiple areas that are sore but none of these are new or different. Also, the elbow is not worsening. Integumentary Reports rash Neurologic Neurologic: Denies headache(s) or paresthesias Endocrine Endocrinology: Denies polydipsia or polyuria Hematologic/Lymphatic Hematologic/Lymphatic: Denies lymphadenopathy Allergic/Immunologic Allergic/Immunologic ED: Denies urticaria EXAM Physical Exam Const Vital Signs: 10/21/21 11:19 Temperature 97.7 F L Temperature Source Temporal Pulse Rate 103 H Respiratory Rate 17 Blood Pressure 144/99 H Blood Pressure Mean 114 Pulse Ox 100 Oxygen Delivery Method Room Air Positive well nourished and well developed General Appearance ED: well developed and NAD HEENT Reports moist mucous membranes Eyes EOMs intact bilaterally Resp normal respiratory effort and clear to auscultation bilaterally Resp Narrative: Bilaterally clear. No pain with a deep breath. He did have some rib fractures but they are doing better. Cardio regular rate and regular rhythm GI normal to inspection, nondistended, normoactive bowel sounds and non-tender Back/Spine General Back: CVA tenderness Neuro Neuro Narrative: Wrist area on his right is healing well. The wound on the left elbow is mostly closed but there is an area proximally and distally that just have a little bit of opening. Its leaking serous fluid onto his dressing. There is some mild diffuse erythema. But his range of motion is actually without pain. I do not think this is in the joint. He states it has not changed in the last couple weeks. He states he still getting some drainage after the antibiotic started 2 days ago. It might be starting to lessen just a little bit. Psych mental status grossly normal Skin Skin Narrative: Erythema around the left elbow wound. MDM MDM MDM Narrative Medical decision making narrative: Patient reports that they did a culture and it was MRSA. I looked at his discharge sheets. He was on Keflex. I will continue this but will also add Bactrim. He has no allergies. I encouraged him to call his with orthopedic surgeon on Saturday for close follow-up. If he has stiffness pain fevers or other concerns he should return. Discharge Plan Triage Chief Complaint: Wound ED Provider: Lavon Dalton Dx/Rx/DC Orders Clinical Impression: Postoperative wound infection Instructions: ED Wound Infection after surgery Prescriptions: New cephalexin [cephalexin] 500 mg capsule 500 mg PO Q6 Qty: 40 0RF sulfamethoxazole-trimethoprim [Bactrim DS] 800-160 mg tablet 1 tab PO BID Qty: 20 0RF Primary Care Provider: Bradley Crowe Referrals: [facility] Doctor,Out of [NON-STAFF] - Activity Restrictions/Additional Instructions: Follow-up with your orthopedic surgeon at [facility] as soon as possible. Disposition Disposition: Home, Self Care
[2021-10-21] MEDS: Cephalexin 250 MG Capsule 500 MG PO (12:05)
[2021-10-21] MEDS: Smz/Tmp Ds Tablet 1 TABLET PO (12:05)
== END 2021-10-21 12:12 | disposition home or self-care (01) ==
PROVIDERS: Emergency Provider Emergency Medicine; PCP Internal Medicine; Visit Provider Emergency Medicine
DX: T81.49XA Infection following a procedure, other surgical site, initial encounter (principal); J42 Unspecified chronic bronchitis; E03.9 Hypothyroidism, unspecified; Z59.00 Homelessness unspecified; F17.210 Nicotine dependence, cigarettes, uncomplicated
CPT/HCPCS: 99283